=== PATIENT | female | born 1985 | race Caucasian/White ===

== ENCOUNTER 2017-03-10 22:38 | Emergency (ER) | payer OTHER ==
[~2017-03-10] VITALS: Ht 154.9 cm; Wt 68.5 kg
[2017-03-10 23:12] VITALS: BP 125/79; Ht 154.9 cm; Wt 68.5 kg
== END 2017-03-11 02:16 | disposition left against medical advice (07) ==
LOC: ED 22:38
DX: Z53.21 Procedure and treatment not carried out due to patient leaving prior to being seen by health care provider (principal)

== ENCOUNTER 2019-07-31 21:37 | Emergency (ER) | payer OTHER ==
[~2019-07-31] VITALS: Ht 154.9 cm; Wt 63.1 kg
[2019-07-31 21:44] VITALS: Ht 154.9 cm; Wt 63.1 kg
[2019-07-31 22:53] VITALS: BP 124/82
== END 2019-07-31 22:53 | disposition home or self-care (01) ==
LOC: ED 21:37
DX: M54.6 Pain in thoracic spine (principal); Z88.6 Allergy status to analgesic agent